=== PATIENT | male | born 1975 | race Caucasian/White ===

== ENCOUNTER 2017-07-15 17:22 | Emergency (ER) | payer MEDICAID ==
[~2017-07-15] VITALS: Ht 165.1 cm; Wt 97.0 kg
[~2017-07-15 17:22] MED LIST: AMOX500C2 PO; TRAM50TA2 PO
[2017-07-15 17:39] VITALS: Ht 165.1 cm; Wt 97.0 kg
--- NOTE | 2017-07-15 18:06 | ERD ---
ER Documentation Chief Complaint Date/Time DATE: 07/15/17 TIME: 18:00 Chief Complaint "WANTS SOMETHING FOR THE NERVOUS, BECAUSE I HAVE FLIGHT TODAY, I'M SCARED " HPI 42 year-old male who presents emergency department stating that he is anxious and nervous that he is going to the plane travel tonight around 11:55. Denies headache, dizziness, blurred vision, chest pain, shortness of breath, abdominal pain, nausea, vomiting, fever, chills. Denies visual/auditory hallucinations/delusions. Not suicidal. Not homicidal. Has the capacity to decide for himself. Has good support system at home. No known drug allergies. Past medical history of anxiety but not in any medications for this. No surgical consent different medication at home. As. Denies smoking, use of alcohol, illegal drugs. ROS All systems reviewed and are negative except as per history of present illness. Medications Home Meds Active Scripts Lorazepam* (Lorazepam*) 1 Mg Tablet, 1 MG PO Q8, #3 TAB Prov:PASILABANGETACHEWAR F 07/15/17 Diphenhydramine Hcl* (Benadryl*) 25 Mg Cap, 25 MG PO Q8 Y for ITCHING/RASH, #30 TAB Prov:PASILABAN,GETACHEWAR F 07/15/17 Tramadol HCl (Tramadol HCl) 50 Mg Tablet, 50 MG PO Q4 Y for PAIN, #20 TAB Prov:FLORENTINO WILLIS PA-C 07/28/16 Amoxicillin* (Amoxicillin*) 500 Mg Cap, 500 MG PO TID for 7 Days, CAP Prov:FLORENTINO WILLIS PA-C 07/28/16 Allergies Allergies: Coded Allergies: No Known Allergy (Unverified , 07/15/17) PMhx/Soc History of Surgery: No Anesthesia Reaction: No Hx Neurological Disorder: No Hx Respiratory Disorders: Yes (asthma) Hx Cardiac Disorders: No Hx Psychiatric Problems: Yes (anxiety) Hx Miscellaneous Medical Probl: Yes (cholesterol) Hx Alcohol Use: No Hx Substance Use: No Hx Tobacco Use: No Physical Exam Vitals Vital Signs Date Time Temp Pulse Resp B/P Pulse Ox O2 Delivery O2 Flow Rate FiO2 07/15/17 17:39 98.2 75 20 131/83 98 Physical Exam Const: [] Head: Atraumatic Eyes: Normal Conjunctiva ENT: Normal External Ears, Nose and Mouth. Neck: Full range of motion..~ No meningismus. Resp: Clear to auscultation bilaterally Cardio: Regular rate and rhythm, no murmurs Abd: Soft, non tender, non distended. Normal bowel sounds Skin: No petechiae or rashes Back: No midline or flank tenderness Ext: No cyanosis, or edema Neur: Awake and alert Psych: Normal Mood and Affect. Denies visual/auditory hallucinations/ delusions. Not suicidal. Not homicidal. Has the capacity to decide for himself. Has good support system at home. Procedures/MDM Examination: Please see physical examination. Medication prescription: Ativan. Benadryl. Primary care physician the next 24-48 hours. Come back here in the emergency department for any new symptoms or any worsening symptoms. All questions and concerns are answered. Patient verbalized understanding and agreed with the plan of care. Departure Diagnosis: Primary Impression: Anxiety Additional Impression: Encounter for medication refill Condition: Stable Additional Instructions: Primary care physician the next 24-48 hours. Come back here in the emergency department for any new symptoms or any worsening symptoms. All questions and concerns are answered. Patient verbalized understanding and agreed with the plan of care. ARI FIGUEROA Jul 15, 2017 18:06
[2017-07-15] MEDS ORDERED: LORA1TAB PO (18:07)
[2017-07-15] MEDS ORDERED: BEN25 PO (18:07)
== END 2017-07-15 18:37 | disposition home or self-care (01) ==
LOC: FTE 17:22
DX: F41.9 Anxiety disorder, unspecified (principal); J45.909 Unspecified asthma, uncomplicated
CPT/HCPCS: 99283